=== PATIENT | female | born 1960 | race Caucasian/White ===

== ENCOUNTER 2016-12-30 16:45 | Emergency (ER) | payer MEDICAID ==
[~2016-12-30] VITALS: Ht 160 cm; Wt 90.7 kg
[~2016-12-30 16:45] MED LIST: LEVO500T15 PO
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
--- NOTE | 2016-12-30 17:26 | NUR ---
Patient discharged to home in stable condition. Written and verbal after care instructions given. Patient verbalizes understanding of instruction.
[2016-12-30 17:27] VITALS: BP 110/65
== END 2016-12-30 17:50 | disposition home or self-care (01) ==
LOC: ER 16:47
DX: S13.4XXA Sprain of ligaments of cervical spine, initial encounter (principal); G43.909 Migraine, unspecified, not intractable, without status migrainosus; V49.49XA Driver injured in collision with other motor vehicles in traffic accident, initial encounter; Y93.89 Activity, other specified; Y92.89 Other specified places as the place of occurrence of the external cause; Y99.9 Unspecified external cause status
CPT/HCPCS: A4606; Z7610

== ENCOUNTER 2018-11-03 20:23 | Emergency (ER) | payer MEDICAID ==
[~2018-11-03] VITALS: Ht 167.6 cm; Wt 86.2 kg
[~2018-11-03 20:23] MED LIST changes: -LEVO500T15 PO; +LEVO500T75 PO
[2018-11-03 20:46] VITALS: BP 159/98
[2018-11-03] MEDS ORDERED: AZITHROMYCIN 250 MG TABLET PO ONE (22:00)
[2018-11-03] MEDS ORDERED: AZITHROMYCIN 250 MG TABLET ONE (22:03)
== END 2018-11-03 22:29 | disposition home or self-care (01) ==
LOC: ER 20:27
DX: J20.9 Acute bronchitis, unspecified (principal); G43.909 Migraine, unspecified, not intractable, without status migrainosus
CPT/HCPCS: 71046

== ENCOUNTER 2019-05-21 15:05 | Emergency (ER) | payer MEDICAID ==
[~2019-05-21] VITALS: Ht 165.1 cm; Wt 86.2 kg
[2019-05-21] MEDS ORDERED: IPRATROPIUM NEB FS 0.5 MG/2.5 ML AMPUL.NEB NEB ONE (15:30)
[2019-05-21] MEDS ORDERED: predniSONE 20 MG TABLET PO ONE (15:30)
[2019-05-21] MEDS ORDERED: IBUPROFEN 600 MG TABLET PO ONE ×2 (15:30→15:33)
[2019-05-21] MEDS ORDERED: ALBUTEROL FS 2.5 MG/3 ML VIAL.NEB CONTNEB ONE (15:30)
[2019-05-21] MEDS ORDERED: predniSONE 20 MG TABLET ONE (15:33)
--- NOTE | 2019-05-21 15:35 | NUR ---
PT AAOX4. C/O Productive cough, nausea, fatigue since saturday. PT PLACED ON MONITOR AND PULSE OX. -SOB. AWAITING MD FOR EVAL. NO ACUTE DISTRESS NOTED.
--- NOTE | 2019-05-21 15:54 | NUR ---
Patient is resting comfortably in bed. Easily aroused. VSS. Family at bedside
[2019-05-21] MEDS ORDERED: IPRATROPIUM NEB FS 0.5 MG/2.5 ML AMPUL.NEB ONE (16:00)
[2019-05-21] MEDS ORDERED: ALBUTEROL FS 2.5 MG/3 ML VIAL.NEB ONE (16:00)
--- NOTE | 2019-05-21 16:05 | NUR ---
PT RECIEVING BREATHING TREATMENT
[2019-05-21 17:23] VITALS: BP 119/68
--- NOTE | 2019-05-21 17:30 | NUR ---
Patient discharged to home in stable condition. Written and verbal after care instructions given. Patient verbalizes understanding of instruction and RX. PT ambulatory with a steady gait.
== END 2019-05-21 17:32 | disposition home or self-care (01) ==
LOC: ER 15:06
DX: J20.9 Acute bronchitis, unspecified (principal); G43.909 Migraine, unspecified, not intractable, without status migrainosus
CPT/HCPCS: 71045; 94640; 99283; J7512

== ENCOUNTER 2022-03-21 20:26 | Emergency (ER) | payer MEDICAID ==
[~2022-03-21] VITALS: Ht 152.4 cm; Wt 81.6 kg
[~2022-03-21 20:26] MED LIST changes: +LEVO500T23 PO; -LEVO500T75 PO
[2022-03-21 20:49] VITALS: BP 141/84
[2022-03-21] MEDS ORDERED: MUPI15CR TP (21:07)
--- NOTE | 2022-03-21 21:19 | NUR ---
Patient discharged to home in stable condition. Written and verbal after care instructions given. Patient verbalizes understanding of instruction.
== END 2022-03-21 21:15 | disposition home or self-care (01) ==
LOC: ER 20:37
DX: R21 Rash and other nonspecific skin eruption (principal); G43.909 Migraine, unspecified, not intractable, without status migrainosus; Z79.899 Other long term (current) drug therapy